=== PATIENT | female | born 1985 | race Caucasian/White ===

== ENCOUNTER 2017-11-04 12:47 | Emergency (ER) | payer BC ==
[~2017-11-04] VITALS: Ht 167.6 cm; Wt 81.1 kg
[~2017-11-04 12:47] MED LIST: ENDOCET 5-3251 EACH PO; Feosol PO; IBUPROFEN800 MG PO; Motrin PO; PRENATAL TABLE1 EAC3 PO; PRILOSEC20 MG PO; Percocet 5/325,Endoc PO; VITAMIN D32000 UNI1 PO; ~No Medications
[2017-11-04 13:51] LABS: BASOPHIL (%) 0.2 % (0-1); EOSINOPHIL (%) 0 % (0-5); HEMATOCRIT 36.1 % (36.0-46.0); IMMATURE GRANULOCYTE (%) 0.5 % (0.0-0.7); LYMPHOCYTE (%) 2.5 % (15-42); LYMPHOCYTE COUNT 0.2 K/uL (1.0-2.8); MCH 29.3 PG (29.0-34.0); MCHC 33.2 G/DL (30.0-36.0); MCV 88.3 FL (83-99); MONOCYTE (%) 3.4 % (3-12); MONOCYTE COUNT 0.2 K/uL (0-0.8); NEUTROPHIL (%) 93.4 % (45-76); NEUTROPHIL COUNT 6.1 K/uL (1.8-6.4); PLATELET COUNT 166 K/uL (156-360); RBC DIS.WIDTH-CV 12.8 % (11.8-14.6); RBC DIS.WIDTH-SD 41.3 % (39-53); RED BLOOD COUNT 4.09 M/uL (3.80-5.20); WHITE BLOOD COUNT 6.5 K/uL (4.1-10.2)
[2017-11-04 14:02] LABS: ALBUMIN 3.7 g/dL (3.2-4.8); CHLORIDE 106 mEq/L (99-109); POTASSIUM 4.1 mEq/L (3.7-5.4); SODIUM 138 mEq/L (136-147)
[2017-11-04 14:03] LABS: MAGNESIUM 1.4 mg/dL (1.3-2.7)
[2017-11-04 14:04] LABS: GLUCOSE 105 mg/dL (70-99); TOTAL PROTEIN 6.9 g/dL (6.4-8.3)
[2017-11-04 14:06] LABS: TOTAL BILIRUBIN 0.5 mg/dL (0.0-1.0)
[2017-11-04 14:08] LABS: ALKALINE PHOSPHATASE 140 IU/L (3-129); CREATININE 0.7 mg/dL (0.6-1.3); GFR ESTIMATE (CALCULATED) > 59 mL/min/
[2017-11-04 14:09] LABS: UREA NITROGEN (BUN) 14 mg/dL (9-23)
[2017-11-04 14:10] LABS: AST (GOT) 22 IU/L (2-34)
[2017-11-04 14:11] LABS: ALT (GPT) 35 IU/L (3-49)
[2017-11-04 14:50] LABS: APPEARANCE SL.HAZY ((CLEAR)); BILIRUBIN NEGATIVE; BLOOD NEGATIVE; COLOR YELLOW ((YELLOW)); GLUCOSE (STRIP) >=500; KETONES 80; LEUKOCYTES NEGATIVE; NITRITE NEGATIVE; PROTEIN (STRIP) 30; SPECIFIC GRAVITY 1.028 (1.000-1.030); UROBILINOGEN 0.2 MG/DL (0.2-1.0)
[2017-11-04 14:53] LABS: BACTERIA RARE /HPF; EPITHELIAL CELLS RARE /HPF; MUCUS 2+ /LPF; RED BLOOD CELLS 0-5 /HPF (0-5); UCUL ADDED? NO; WHITE BLOOD CELLS 0-5 /HPF (0-5)
[2017-11-04] MEDS ORDERED: ZOFRAN ODT4 MG PO (15:33)
[2017-11-04 17:13] VITALS: BP 107/55
== END 2017-11-04 15:41 | disposition home or self-care (01) ==
LOC: EME 12:47
PROVIDERS: Emergency Medicine
DX: O99.612 Diseases of the digestive system complicating pregnancy, second trimester (principal); K52.9 Noninfective gastroenteritis and colitis, unspecified; R42 Dizziness and giddiness; R05 Cough; Z3A.27 27 weeks gestation of pregnancy
CPT/HCPCS: 80053; 81003; 83735; 85025; 87502; 99281; 99285; J7042

== ENCOUNTER 2018-01-26 10:53 | Inpatient (IN) | payer BC ==
[2018-01-26] VITALS (14 sets, daily range): BP systolic 92–135; BP diastolic 55–81
[~2018-01-26] VITALS: Ht 167.6 cm; Wt 87.9 kg
[~2018-01-26 10:53] MED LIST changes: +ZOFRAN ODT4 MG PO
[2018-01-26 12:57] LABS: BASOPHIL (%) 0.2 % (0-1); EOSINOPHIL (%) 0.6 % (0-5); EOSINOPHIL COUNT 0.1 K/uL (0-0.3); HEMATOCRIT 33.3 % (36.0-46.0); HEMOGLOBIN 10.8 G/DL (11.9-15.5); IMMATURE GRANULOCYTE (%) 0.6 % (0.0-0.7); LYMPHOCYTE (%) 19.8 % (15-42); LYMPHOCYTE COUNT 1.8 K/uL (1.0-2.8); MCH 28.5 PG (29.0-34.0); MCHC 32.4 G/DL (30.0-36.0); MCV 87.9 FL (83-99); MONOCYTE (%) 4.5 % (3-12); MONOCYTE COUNT 0.4 K/uL (0-0.8); NEUTROPHIL (%) 74.3 % (45-76); NEUTROPHIL COUNT 6.9 K/uL (1.8-6.4); PLATELET COUNT 162 K/uL (156-360); RBC DIS.WIDTH-SD 44.3 % (39-53); RED BLOOD COUNT 3.79 M/uL (3.80-5.20); WHITE BLOOD COUNT 9.2 K/uL (4.1-10.2)
[2018-01-27] VITALS (43 sets, daily range): BP systolic 92–142; BP diastolic 50–84
[2018-01-28 07:05] VITALS: BP 108/53
[2018-01-28] MEDS ORDERED: IBUPROFEN800 MG PO (09:41)
[2018-01-28 14:20] VITALS: BP 132/77
[2018-01-29 06:50] VITALS: BP 109/69
== END 2018-01-29 13:39 | disposition home or self-care (01) | DRG 775 ==
LOC: LDRP-OP 10:53 → 2WEST 10:54 → LDRP-OP 02-28 13:16
PROVIDERS: Obstetrics & Gynecology
DX: O70.1 Second degree perineal laceration during delivery (principal); O63.0 Prolonged first stage (of labor); O42.92 Full-term premature rupture of membranes, unspecified as to length of time between rupture and onset of labor; O36.1130 Maternal care for Anti-A sensitization, third trimester, not applicable or unspecified; O34.211 Maternal care for low transverse scar from previous cesarean delivery; Z3A.39 39 weeks gestation of pregnancy; Z37.0 Single live birth
CPT/HCPCS: 85025; C1755; G0378; J1200; J2405; J3010; J7120